=== PATIENT | male | born 1990 | race Hispanic/Latino ===

== ENCOUNTER 2018-12-03 17:50 | Observation (INO) | payer SELFPAY ==
[2018-12-03 18:34] LABS: Bilirubin 2+ (Negative); Blood, Urine Negative (Negative); Clarity Clear (Clear); Glucose, Urine (Dipstick) Normal (Negative); Leukocyte Negative Leu/uL (Negative); Nitrite Negative (Negative); Protein, Urine (Dipstick) 20 mg/dL (Neg-Trace); Urobilinogen Normal mg/dL (Less than 2)
[2018-12-03 18:41] LABS: #Basophils 0.1 thou/uL (0.0-0.2); #Eosinphils 0.1 thou/uL (0.0-0.7); #Lymphocytes 1.1 thou/uL (1.20-3.40); #Monocytes 0.9 thou/uL (0.11-0.59); #Neutrophils 3.7 thou/uL (1.40-6.50); %Basophils 1.2 % (0.0-1.0); %Eosinophils 1.1 % (0.0-10.0); %Lymphocytes 19.1 % (21.0-51.0); %Monocytes 14.8 % (0.0-10.0); %Neutrophils 63.9 % (42.0-75.0); Mean Corpuscular HGB CONC 34.1 g/dL (32.0-36.0); Mean Corpuscular Volume 90.8 fL (78.0-98.0); Mean Platelet Volume 7.6 fL (7.4-10.4); Platelet Count 283 thou/uL (130-400); RBC Distribution Width 11.8 % (11.5-14.5); Red Blood Cell (RBC) Count 5.17 mill/uL (4.70-6.10); White Blood Cell (WBC) Count 5.8 thou/uL (4.8-10.8)
[2018-12-03 18:46] LABS: Prothrombin Time 13.3 SEC (12.0-14.7)
[2018-12-03 19:04] LABS: ALT (SGPT) 3068 U/L (8-55); AST (SGOT) 1366 U/L (5-34); Albumin 4.5 g/dL (3.5-5.0); Alkaline Phosphatase 224 U/L (40-150); Anion Gap 14 mmol/L (10-20); BUN (Urea Nitrogen) 13 mg/dL (8.9-20.6); Bilirubin, Total 6.1 mg/dL (0.2-1.2); Calc. Creatinine Clearance 0 mL/min (70-130); Calcium 9.9 mg/dL (7.8-10.44); Carbon Dioxide 27 mmol/L (22-29); Chloride 100 mmol/L (98-107); Estimated GFR-MDRD 69; Globulin 4.1 g/dL (2.4-3.5); Glucose 112 mg/dL (70-105); Lipase 68 U/L (8-78); Potassium 4.7 mmol/L (3.5-5.1); Protein, Total 8.6 g/dL (6.0-8.3); Sodium 136 mmol/L (136-145)
--- NOTE | 2018-12-03 20:49 | PDOC.EVN ---
Event Note - Event Note Event Note: I personally evaluated the patient and discussed the management with Dr. Posadas. I agree with the History and Physical exam assessment and plan with any additional information noted below. CC N/V abdominal pain and inability to take po HPI 28 yo male recently arrived from [facility] with 1 week symptoms of abdominal pain , jaundice, chalky stools and seen at clinic 2 days ago and DX with Hepatitis A. Patient states he was exposed to poor quality water in [facility] before traveling here. Lab dated 12/02 notable reactive IGM hepatitis A , negative serology for hep B and C, TB 3.7 alkaline phosphatase 205, AST 1743, ALT 3067 WBC 4,100 H/H 15/43.6 17 % monocytes, PLTs 274,000 PMX MEDS none ALLERGIES ASA advised stop ASA in Past due to nosebleed HABITS denies tobacco use social drinker SOCIAL accompanied by Mother visiting from [facility] PRIOR HOSP SURGERY Appendectomy at 4 yo ROS small stomach ulcer dx at 16 yo otherwise negative P.E. dehydrated mild distress HEENT sclera icteric NECK supple no adenopathy CV NSR PULM CTA GI tender RUQ, BS present no rebound no guarding Neuro nonfocal Ext no c/c/e Skin poor turgor ASSESSMENT/PLAN Hepatitis A with rising bilirubin failed outpatient management admitted for IV fluid resuscitation, symptom management, caution with hepatic metabolized RX, enteric precautions rec vaccine Hep A close contacts, check HIV status patient denies risk factors, GI was consulted from ER CODE STATUS Full
--- NOTE | 2018-12-03 21:23 | PDOC.FPRHP ---
- History of Present Illness Chief Complaint: Nausea, vomiting, abnormal labs History of Present Illness: Mr. Ramos is a previously healthy 28yo [facility] male who presents to the ED at the recommendation of a clinic that he went to. He states that he has had symptoms of malaise, occasional vomiting, and fatigue for approximately one week. He also had one episode of fever at home. Three days ago he was unable to eat and vomited until he dry heaved. The following day he had 1 day of diarrhea. He went to a clinic and they gave him medication for nausea which helped and checked his labs which revealed elevated liver enzymes. He was encouraged to come to the ED for further evaluation. Today he still complains of fatigue and malaise, but has been able to tolerate soft foods and tea. He states that his stools are pale in color. Upon further questioning, he was recently in [facility] on his way to the to visit his sister who is an elementary classroom teacher in [place]. He believes he could have contracted this illness in [facility] because the food he ate there was not prepared in a clean environment. ED Course: 1 L IV fluids - Allergies/Adverse Reactions Allergies Allergy/AdvReac Type Severity Reaction Status Date / Time aspirin Allergy bleeding Verified 12/03/18 23:43 - History PMHx: Gastric ulcer, age 15 PSHx: Appendectomy, age 4 Sinoplasty, age 22 FHx: Mom and dad both have HTN Social: Denies smoking and illicit drugs, social drinker on weekends. - Review of Systems General: reports: fever/chills, weight/appetite/sleep changes, fatigue. denies : night sweats Eyes: denies: eye pain, vision changes ENT: denies: nasal congestion, rhinorrhea Respiratory: denies: cough, congestion, shortness of breath Cardiovascular: denies: chest pain, palpitation, edema Gastrointestinal: reports: nausea, vomiting, diarrhea, abdominal pain. denies: constipation, GI bleeding Genitourinary: denies: incontinence, dysuria, polyuria Skin: reports: jaundice, itching. denies: rashes, lesions Musculoskeletal: denies: pain, tenderness Neurological: reports: other (dizzy). denies: numbness, syncope Psychological: denies: anxiety, depression - Vital signs BP: [] HR: [] RR: [] Tmax: [] Pox: []% on [] Wt: [] - Physical Exam Constitutional: NAD, awake, alert and oriented, well developed HEENT: normocephalic and atraumatic, PERRLA, EOMI -HEENT: scleral icterus present Neck: supple, FROM Chest: no-tender to palpation Heart: RRR, normal S1/S2, no murmurs/rubs/gallops, pulses present, no edema Lungs: CTAB, no respiratory distress, good air movement, no rales/rhonchi, no wheezing, no retractions Abdomen: soft, bowel sounds present, no masses/distention -Abdomen: mildly tender Musculoskeletal: normal structure, normal tone Neurological: no focal deficit, CN II-XII intact Skin: no rash/lesions, other (jaundiced) Heme/Lymphatic: no unusual bruising or bleeding, no purpura Psychiatric: normal mood and affect, good judgment and insight, intact recent and remote memory FMR H&P: Results - Labs Result Diagrams: 12/03/18 18:29 12/03/18 18:29 Lab results: WBC 5.8 thou/uL (4.8-10.8) 12/03/18 18: Hgb 16.0 g/dL (14.0-18.0) 12/03/18 18: Hct 46.9 % (42.0-52.0) 12/03/18 18: MCV 90.8 fL (78.0-98.0) 12/03/18 18: Plt Count 283 thou/uL (130-400) 12/03/18 18: Neutrophils % 63.9 % (42.0-75.0) 12/03/18 18: Sodium 136 mmol/L (136-145) 12/03/18 18: Potassium 4.7 mmol/L (3.5-5.1) 12/03/18 18: Chloride 100 mmol/L (98-107) 12/03/18 18: Carbon Dioxide 27 mmol/L (22-29) 12/03/18 18: BUN 13 mg/dL (8.9-20.6) 12/03/18 18: Creatinine 1.24 mg/dL (0.7-1.3) 12/03/18 18: Glucose 112 mg/dL (70-105) H 12/03/18 18:29 Calcium 9.9 mg/dL (7.8-10.44) 12/03/18 18:29 Total Bilirubin 6.1 mg/dL (0.2-1.2) H 12/03/18 18:29 AST 1366 U/L (5-34) H 12/03/18 18:29 ALT 3068 U/L (8-55) H 12/03/18 18:29 Alkaline Phosphatase 224 U/L (40-150) H 12/03/18 18:29 Ammonia 62 umol/L (18-72) 12/03/18 18:29 Serum Total Protein 8.6 g/dL (6.0-8.3) H 12/03/18 18:29 Albumin 4.5 g/dL (3.5-5.0) 12/03/18 18:29 Lipase 68 U/L (8-78) 12/03/18 18:29 Urine Ketones Negative mg/dL (Negative) 12/03/18 18:25 Urine Blood Negative (Negative) 12/03/18 18:25 Urine Nitrite Negative (Negative) 12/03/18 18:25 Ur Leukocyte Esterase Negative Maria Eugenia/uL (Negative) 12/03/18 18:25 FMR H&P: A/P - Problem List (1) Hepatitis A Current Visit: Yes Status: Acute Code(s): B15.9 - HEPATITIS A WITHOUT HEPATIC COMA - Plan 1. Hepatitis A * Confirmed with outside clinic records. * AST/ALT/Bilirubin rising. Will trend in the AM. * IV Fluid hydration * Zofran and Immodium prn for symptom control * Regular diet. * Will screen for HIV. Disposition/LOS: DISPO: Observation, <48hours. CODE: FULL VTE: SCD FMR H&P: Upper Level - Pertinent history 28 [address] from [facility] with no pmhx presents with n/v/d, fever and chills, with recent travel to [place] before coming here to visit his sister. - Pertinent findings Vitals: BP: 124/77 HR: 82 RR: 18 T:99.3 O2sat: 98% on RA PE: NAD CTAB RRR, no m/r/g a&ox3 no edema 2+peripheral pulses abdomin soft nondistended, nontender INR 1.0 AST: 1366 ALT: 3068 Tb: 6.1 direct bili: 4.4 hemagram wnl UA: +Bili - Plan Date/Time: 12/03/182119 A/P: 28 yo gentleman admitted for acute hepatitis A infection with mild dehydration. #Acute hepatitis A with mild dehydration- -will admit overnight to fluid resusitate since pt not tolerating PO. Will advance diet as tolerated. -Not in acute liver failure, but will trend liver enzymes, INR, and monitor closely. Pt is not encephalopathic. -NS @ maintenance ordered. -Pt may be good to go home in the AM with close follow-up, if tolerating PO. DVT: SCDs Code: Full dispo: <2 midnights H. MD Len, PGY-3 Addendum - Attending - Attending Attestation Date/Time: 12/04/18 0660 I personally evaluated the patient and discussed the management with Dr. Posadas I agree with the History, Examination, Assessment and Plan documented above with any addition or exceptions noted below.
[2018-12-03] MEDS ORDERED: Acetaminophen 325 MG TAB PO PRN (21:57)
[2018-12-03] MEDS ORDERED: Loperamide HCl 2 MG CAP PO PRN (21:57)
[2018-12-03] MEDS ORDERED: Ondansetron ODT 4 MG TAB PO PRN (21:57)
[2018-12-03 23:18] LABS: Magnesium 2.1 mg/dL (1.6-2.6); Phosphorus 3.7 mg/dL (2.3-4.7)
[2018-12-03 23:46] VITALS: BMI 24.1
[2018-12-04] MEDS: Sodium Chloride 0.9% 1,000 ML IV SCH ×2 (00:08→05:13)
[2018-12-04 06:19] LABS: INR-International Normal Ratio 1.1; Prothrombin Time 14.5 SEC (12.0-14.7)
--- NOTE | 2018-12-04 06:33 | PDOC.FM ---
- Subjective Subjective: Pt states that he is feeling much better this morning. Denies any nausea or vomiting through the night. States he was able to eat a sandwich and drink water without difficulty. - Objective Vital Signs & Weight: Vital Signs (12 hours) Temp Pulse Resp BP Pulse Ox 12/04/18 04:42 98.1 F 73 16 100/66 98 12/04/18 00:31 98.4 F 73 16 112/70 97 12/03/18 23:44 98.4 F 73 20 112/70 97 Weight Weight 69.91 kg Result Diagrams: 12/03/18 18:29 12/04/18 05:47 Phys Exam - Physical Examination Constitutional: NAD HEENT: PERRLA, moist MMs, sclera anicteric Neck: no nodes, full ROM Respiratory: no wheezing, no rales, no rhonchi, clear to auscultation bilateral Cardiovascular: RRR, no significant murmur, no rub Gastrointestinal: soft, positive bowel sounds Mild tenderness with deep palpation diffusely Musculoskeletal: no edema, pulses present Neurological: non-focal, moves all 4 limbs Psychiatric: normal affect, A&O x 3 Skin: no rash, cap refill <2 seconds Dx/Plan (1) Hepatitis A Code(s): B15.9 - HEPATITIS A WITHOUT HEPATIC COMA Status: Acute (2) Jaundice Code(s): R17 - UNSPECIFIED JAUNDICE Status: Acute (3) Vomiting Code(s): R11.10 - VOMITING, UNSPECIFIED Status: Acute - Plan Plan: Hepatitis A - Trending LFT's -AST: 1366 > 792 -ALT: 3068 > 2094 -Total Bili: 6.1 > 5.1 -Alk phos: 224 > 166 - Fluid resuscitation with NS @ 125 - Pt presented with N/V, none since admission, tolerating diet - Plan for DC today with close follow up outpt Condition: Stable, improving VTE: NA Code Status: Full Fluids: NS 125 Diet: AAT Dispo: As long as pt tolerates PO for the remainder of the morning we will discharge him home with close outpt follow up
[2018-12-04 06:37] LABS: ALT (SGPT) 2094 U/L (8-55); AST (SGOT) 792 U/L (5-34); Albumin 3.5 g/dL (3.5-5.0); Alkaline Phosphatase 166 U/L (40-150); Anion Gap 9 mmol/L (10-20); BUN (Urea Nitrogen) 11 mg/dL (8.9-20.6); Bilirubin, Total 5.1 mg/dL (0.2-1.2); Calc. Creatinine Clearance 121 mL/min (70-130); Calcium 8.8 mg/dL (7.8-10.44); Carbon Dioxide 28 mmol/L (22-29); Chloride 105 mmol/L (98-107); Estimated GFR-MDRD Greater than 90; Globulin 3.4 g/dL (2.4-3.5); Glucose 93 mg/dL (70-105); Potassium 4.2 mmol/L (3.5-5.1); Protein, Total 6.9 g/dL (6.0-8.3); Sodium 138 mmol/L (136-145)
--- NOTE | 2018-12-04 11:08 | PRG ---
DATE OF SERVICE: 12/04/2018 Mr. Ramos is a pleasant 28-year-old [facility] male, who was admitted with acute hepatitis A after being seen in a local clinic yesterday. His initial transaminase levels were an AST of 1366, an ALT of 3068, total bilirubin of 6.1. They have dropped this morning to a bilirubin of 5.1 and AST of 792 and ALT of 2094. His electrolytes are normal. He is tolerating a regular diet, and having no significant nausea or abdominal pain. We can likely discharge him later today for followup at the local [facility] clinic. Anticipated it will take at least a week or two for the transaminases to begin to return to near normal. Job ID: [id number]
[2018-12-04 12:50] VITALS: BP 102/61; TEMP 97.9
--- NOTE | 2018-12-05 01:08 | DIS ---
DATE OF ADMISSION: 12/03/2018 DATE OF DISCHARGE: 12/04/2018 ADMITTING ATTENDING: Steve Lui MD DISCHARGE ATTENDING: John Villagran MD RESIDENT: Jose Mayorga DO CONSULTS: None. PROCEDURES: None. DISCHARGE MEDICATIONS: Zofran 4 mg p.o. q.4 hours p.r.n. HISTORY OF PRESENT ILLNESS AND HOSPITAL COURSE: The patient is a 28-year-old [place] male, who presents to the ED at the recommendation of a physician at [facility]. He was seen there yesterday for malaise, vomiting, fatigue, and abdominal pain for approximately one week. The patient stated that he recently traveled from [place] to [place] to visit his sister. Along the way, he ate some questionably prepared food and drink the local water. Workup at the [facility] showed elevated LFTs and acute hepatitis A infection. The patient was then sent here for further evaluation. GI was consulted in the ED and suggested the patient be admitted for observation and rehydration. The patient received a 1 L fluid bolus in the ER and was admitted on maintenance fluids. The patient had an un- eventful night and denied any nausea, vomiting, diarrhea, or abdominal pain. He was able to eat a sandwich and drink without any exacerbation of his symptoms. The following morning, his lab work was repeated which showed his LFTs had trended down. The patient was feeling well in the morning. The patient was instructed to follow up at the [facility] in 2-3 days to have his LFTs redrawn to evaluate for continued resolution of his acute infection. The patient and mother voiced understanding of this and return precautions. DISPOSITION: Stable. DISCHARGE INSTRUCTIONS: 1. Location: Home. 2. Activity: No restrictions. 3. Diet: Advance as tolerated. No restrictions. 4. Followup: Follow up local clinic within 2-3 days for repeat blood work and evaluation. Job ID: [id number] [id number]
== END 2018-12-04 14:31 | disposition home or self-care (01) ==
LOC: ERS 17:50 → T4-A 19:44
PROVIDERS: ADMIT Family Medicine; ATTEND Family Medicine
DX: B15.9 Hepatitis A without hepatic coma (principal); E86.0 Dehydration; Z88.8 Allergy status to other drugs, medicaments and biological substances
CPT/HCPCS: 36415; 80053; 81003; 82140; 82248; 83690; 83735; 84100; 85025; 85610; 96360; 96361; G0378